=== PATIENT | female | born 1975 | race Hispanic/Latino ===

== ENCOUNTER → 2023-10-22 16:26 | Outpatient (REF) | payer OTHER, SELFPAY | LOC: HWRAD 16:26 | PROVIDERS: ATTENDING PHYSICIAN Student in an Organized Health Care Education/Training Program | DX: M79.622 Pain in left upper arm (principal) | CPT/HCPCS: 71046 ==

== ENCOUNTER → 2023-10-26 07:53 | Outpatient (REF) | payer OTHER, SELFPAY | LOC: HWRAD 07:53 | PROVIDERS: ATTENDING PHYSICIAN Student in an Organized Health Care Education/Training Program | DX: R10.12 Left upper quadrant pain (principal) | CPT/HCPCS: 76700 ==

== ENCOUNTER → 2023-10-26 14:25 | Outpatient (REF) | payer OTHER, SELFPAY | LOC: WDC 14:25 | PROVIDERS: ATTENDING PHYSICIAN Physician Assistant | DX: R92.8 Other abnormal and inconclusive findings on diagnostic imaging of breast (principal) | CPT/HCPCS: 76642 ==

== ENCOUNTER 2023-12-13 19:22 | Outpatient (RCR) | payer OTHER, SELFPAY | END 2023-12-13 23:59 | disposition home or self-care (01) | LOC: RPT 19:22 | PROVIDERS: ATTENDING PHYSICIAN Student in an Organized Health Care Education/Training Program | DX: M79.622 Pain in left upper arm (principal); M25.512 Pain in left shoulder; M54.6 Pain in thoracic spine | CPT/HCPCS: 97010; 97110; 97112; 97140; 97161; 97530 ==

== ENCOUNTER 2023-12-31 15:09 | Outpatient (RCR) | payer OTHER, SELFPAY | END 2024-01-03 16:09 | disposition home or self-care (01) | LOC: RPT 15:09 | PROVIDERS: ATTENDING PHYSICIAN Student in an Organized Health Care Education/Training Program | DX: M79.622 Pain in left upper arm (principal); M25.512 Pain in left shoulder; M54.6 Pain in thoracic spine; Z73.6 Limitation of activities due to disability | CPT/HCPCS: 97010; 97110; 97112; 97140 ==

== ENCOUNTER → 2024-06-26 14:11 | Outpatient (REF) | payer OTHER, SELFPAY | LOC: WDC 14:11 | PROVIDERS: ATTENDING PHYSICIAN Nurse Practitioner Family; FAMILY PHYSICIAN Student in an Organized Health Care Education/Training Program | DX: Z12.31 Encounter for screening mammogram for malignant neoplasm of breast (principal) | CPT/HCPCS: 77063; 77067 ==

== ENCOUNTER 2024-08-06 13:04 | Emergency (ER) | payer OTHER, SELFPAY ==
[2024-08-06 13:05] VITALS: BP 123/81
[2024-08-06 13:31] LABS: % Basophils 0.2 % (0-2); % Eosinophils 2.8 % (0-6); % Immature Granulocytes 0.2 % (0-0.5); % Monocytes 10.1 % (1.7-9.3); % Neutrophils 76.7 % (42.2-75.2); Absolute Eosinophils 0.4 10^3/uL (0-0.7); Absolute Lymphocytes 1.3 10^3/uL (1.2-3.4); Absolute Monocytes 1.3 10^3/uL (0.1-0.6); Hematocrit 40.7 % (37.0-47.0); Hemoglobin 13.5 g/dL (12.0-16.0); Mean Corp Hgb Conc. 33.2 g/dL (33.0-37.0); Mean Corpuscular Hgb 26.9 pg (27.0-31.0); Mean Corpuscular Volume 81.2 fL (81.0-99.0); Mean Platelet Volume 9.8 fL (7.4-10.4); Nucleated Red Blood Cells % 0 %; Platelet Count 220 10^3/uL (130-400); Red Blood Cell Count 5.01 10^6/uL (4.20-5.40); Red Cell Dist. Width 14.1 % (11.5-14.5)
[2024-08-06 13:34] LABS: Urine Albumin 2+ (Neg - Trace); Urine Bilirubin Negative (Negative); Urine Character Cloudy (Clear); Urine Color Yellow; Urine Glucose Negative (Negative); Urine Ketone 1+ (Negative); Urine Leukocyte 1+ (Negative); Urine Nitrite Negative (Negative); Urine Occult Blood 4+ (Negative); Urine Specific Gravity 1.015 (<1.030); Urine Urobilinogen 1+ (Neg - 1+)
[2024-08-06 13:48] LABS: Urine Red Blood Cell 40-50 /HPF (0-2); Urine Squamous Cell 16-20 /LPF (Few)
[2024-08-06 13:49] LABS: Urine Bacteria Few (Negative)
[2024-08-06 13:50] LABS: ALT (SGPT) 78 U/L (0-35); AST (SGOT) 63 U/L (14-36); Alkaline Phosphatase 171 U/L (38-126); Blood Urea Nitrogen 5 mg/dl (7-17); Calcium 9.4 mg/dl (8.4-10.2); Carbon Dioxide 27 mmol/L (22-30); Chloride 103 mmol/L (98-107); Glucose 101 mg/dl (70-99); Lipase 39 U/L (23-300); Potassium 4.6 mmol/L (3.5-5.1); Sodium 136 mmol/L (135-145); Total Bilirubin 1.3 mg/dl (0.2-1.3); Total Protein 6.9 g/dl (6.3-8.2); eGFR > 60.00
[2024-08-06 13:57] LABS: HCG, Serum Qualitative Screen Negative
--- NOTE | 2024-08-06 14:23 | ED.GENMED ---
History of Present Illness
General
Chief Complaint: Abdominal Pain
Time Seen by Provider: 08/06/24 13:54
History of Present Illness
History of Present Illness:
49-year-old female without significant past medical history presenting for 3 days of left-sided abdominal pain. Notes associated chills. Denies nausea, vomiting, diarrhea. Denies ever having this pain before and denies any abdominal surgeries.
She went to urgent care prior to arrival, was told that she had blood in her urine. Denies any history of kidney stones. Denies dysuria. Does note irregular periods, premenopausal. Notes some lower back discomfort. Denies additional acute
medical complaints
Past History
Past History
ED Past Medical History: None
ED Past Surgical History: Other (Deviated septum )
Social History
Tobacco: Non-smoker
Personal:
Family History
Family History: Negative Early CAD
Phy Exam
Physical Exam
Physical Exam:
General: Well-appearing, no clinical signs of dehydration, nontoxic and in no acute distress
HEENT: protecting airway
Neck: appears supple
CV: Normal heart rate, regular rhythm
Resp: No accessory muscle use, no increased work of breathing, lungs clear to auscultation bilaterally
Abd: Soft and non-distended, focal tenderness in the left lower quadrant abdomen without rebound or guarding. No CVA tenderness
Extremities: No deformities, no swelling
Neuro: alert, no focal neurologic deficit
: deferred
Rectal: deferred
Psych: Normal affect
Skin: Intact
Course
Orders/Labs/Results
Orders:
Orders
08/06/24 13:05
Test Result ONCE
08/06/24 13:17
Complete Blood Count/With Diff Urgent
Comprehensive Metabolic Panel Urgent
HCG, Serum Qualitative Screen Urgent
Lipase Urgent
08/06/24 13:19
Urinalysis Reflex To Culture Urgent
Date Specimen was Collected: 08/06/24
Time Specimen was Collected: 13:05
Urine Microscopic Reflex Cult Urgent
Urine Culture Urgent
PRIYA Source: U
Specimen Description:
Date Specimen was Collected: 08/06/24
Time Specimen was Collected: 13:05
08/06/24 14:18
CT Abd/pelvis W Iv Cont Urgent
Comment:
Reason For Exam: LLQ pain, stone vs diverticulitis
08/06/24 14:22
Ketorolac [Toradol] 15 mg IV NOW STA
08/06/24 17:58
Amoxicillin 875 mg/Clav 125 mg [Augmentin 875 mg/125 mg] 1 tablet PO NOW STA
Abnormal Lab Results
08/06/24 08/06/24
13:17 13:19
WBC 13.0 H 10^3/uL
(4.8-10.8)
MCH 26.9 L pg
(27.0-31.0)
Absolute Neuts (auto) 10.0 H 10^3/uL
(1.4-6.5)
Absolute Monos (auto) 1.3 H 10^3/uL
(0.1-0.6)
Neutrophils % 76.7 H %
(42.2-75.2)
Lymphocytes % 10.0 L %
(20.5-51.1)
Monocytes % 10.1 H %
(1.7-9.3)
BUN 5 L mg/dl
(7-17)
Glucose 101 H mg/dl
(70-99)
AST 63 H U/L
(14-36)
ALT 78 H U/L
(0-35)
Alkaline Phosphatase 171 H U/L
(38-126)
Urine Ketones 1+ A
(Negative)
Ur Occult Blood Reflex 4+ A
(Negative)
Leukocyte Esterase Rfl 1+ A
(Negative)
Urine RBC 40-50 A /HPF
(0-2)
Urine Bacteria (Reflex) Few A
(Negative)
Urine Albumin (Reflex) 2+ A
(Neg - Trace)
08/06/24 13:17
08/06/24 13:17
Vital Signs
Initial and Last Documented VS:
Initial Vital Signs
Temp Pulse Resp BP Pulse Ox
98.4 F 82 18 123/81 100
08/06/24 13:05 08/06/24 13:05 08/06/24 13:05 08/06/24 13:05 08/06/24 13:05
Last Documented Vital Signs
Temp Pulse Resp BP Pulse Ox
98.4 F 81 18 110/65 97
08/06/24 13:05 08/06/24 17:00 08/06/24 17:00 08/06/24 17:00 08/06/24 17:00
MDM/Problems Addressed
MDM/Problems Addressed:
49-year-old female presenting for 3 days of lower abdominal pain. Vital signs on arrival are normal.
On exam, patient is resting comfortably, nontoxic. However does have focal tenderness to left lower quadrant. No rebound or guarding. Patient had screening laboratory analysis prior to my assessment with leukocytosis. She also has microscopic
hematuria. Differential considerations include diverticulitis versus nephrolithiasis versus infected stone. No signs of UTI with lower suspicion for pyelo. Will administer Toradol for pain and obtain CT imaging
18:00 -CT is consistent with uncomplicated diverticulitis. No complicating features. Patient remains hemodynamically stable and comfortable on examination room. Feel stable for discharge with outpatient management oral antibiotics. Will start on
Augmentin. Return precautions discussed and patient and family at bedside verbalized understanding
*Critical Care Note
Total Time (30-74mins, 75-104mins- exclusive of procedures): Not Applicable
ED Attending Note
-
Portions of this chart may have been created with voice recognition software.� Occasional wrong word or��sound alike� substitutions may have occurred due to the inherent limitations of voice recognition software.
Discharge Plan
Departure
Prescriptions:
No Action
vit no.[id number] [ Vitamin] 1 EACH tablet
1 ea PO DAILY
oxycodone-acetaminophen 5 MG/325 MG tablet
1 - 2 tab PO Q3HPRN PRN (Reason: severe pain) Qty: 30 0RF
ibuprofen 600 MG tablet
600 mg PO Q4HPRN PRN (Reason: moderate pain/cramps) Qty: 0 0RF
Referrals:
Dedra Walls MD, Resident [Family Provider] -
Interventions
Interventions:
*Risk Screen - Suicide Last Done: 08/06/24 13:07
*General Assessment Last Done: 08/06/24 13:07
*Neglect/Abuse Screening Last Done: 08/06/24 13:07
*ED- Fall Risk Assessment Last Done: 08/06/24 15:03
*ED COVID-19 Vaccine History Last Done: 08/06/24 15:03
UG-Yyokun-Rhpssuetjz Assessment Last Done: 08/06/24 15:06
Discharge Date and Time
Print Language: BARBADIAN
[2024-08-06 15:00] VITALS: BP 104/71
[2024-08-06] MEDS: TORADOL 15 MG IV (15:00)
[2024-08-06 15:02] VITALS: BMI 29.7
[2024-08-06 17:00] VITALS: BP 110/65
[2024-08-06] MEDS: AUGMENTIN 875 MG/125 MG 1 TABLET PO (18:19)
== END 2024-08-06 18:42 | disposition home or self-care (01) ==
LOC: EMR 13:04
PROVIDERS: Emergency Medicine; EMERGENCY PHYSICIAN Student in an Organized Health Care Education/Training Program; FAMILY PHYSICIAN Student in an Organized Health Care Education/Training Program
DX: K57.32 Diverticulitis of large intestine without perforation or abscess without bleeding (principal); R31.29 Other microscopic hematuria
CPT/HCPCS: 96374; 99284; 74177; 80053; 81003; 81015; 83690; 84703; 85025; 87086; Q9967